=== PATIENT | female | born 1995 | race Caucasian/White ===

== ENCOUNTER 2017-04-26 20:06 | Emergency (ER) | payer OTHER ==
[2017-04-26] MEDS ORDERED: KETOROLAC 60 MG/2 ML VIAL IVP STA (20:35)
--- NOTE | 2017-04-26 20:36 | ED Physician Documentation ---
PD HPI ABD PAIN - Stated complaint Stated Complaint: ABD PX - Chief complaint Chief Complaint: Abd Pain - History obtained from History obtained from: Patient - History of Present Illness Timing - onset: Yesterday Timing - duration: Days (2) Timing - details: Gradual onset Pain level max: 8 Pain level now: 8 Quality: Aching, Pain Location: All over / everywhere Improved by: Laying still Worsened by: Moving Associated symptoms: No: Fever, Nausea, Vomiting, Hematemesis, Diarrhea, Constipation, Melena, Hematochezia, Dysuria, Hematuria, Chest pain Similar symptoms before: Diagnosis (ovarian cyst) Recently seen: Not recently seen - Additional information Additional information: Patient is a 21-year-old female who presents to the emergency department with suprapubic pain for the past 2 days, now radiating to the epigastric region. No pain in her back. She states it is worse when she tries to sit up from lying down or get up from sitting to standing. Does not recall any injury. No recent workouts. Took Motrin last night. Has not taken anything today. No diarrhea, no constipation, no vaginal bleeding or discharge. 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 - Past Surgical History Past Surgical History: No - Present Medications Home Medications: Ambulatory Orders Medication Instructions Recorded Confirmed Oxycodone HCl/Acetaminophen 1 - 2 each PO Q6H PRN #14 tablet 04/26/17 [Percocet 5-325 mg Tablet] - Allergies Allergies/Adverse Reactions: Allergies Allergy/AdvReac Type Severity Reaction Status Date / Time nickel Allergy Rash Verified 04/26/17 20:18 - Living Situation Living Arrangement: reports: At home - Social History Does the pt smoke?: No Does the pt have substance abuse?: No - Family History Family history: reports: Non contributory PD ED PE NORMAL - Vitals Vital signs reviewed: Yes - General General: Alert and oriented X 3, Well developed/nourished, Other (appears uncomfortable) - HEENT HEENT: PERRL, Moist mucous membranes - Neck Neck: Supple, no meningeal sign - Cardiac Cardiac: RRR, Strong equal pulses - Respiratory Respiratory: No respiratory distress, Clear bilaterally - Abdomen Abdomen: Soft, Non distended, Other (TTP diffusely, but worse in the RLQ. + rebound. ) - Female Female : Pt declined - Back Back: No CVA TTP, No spinal TTP - Derm Derm: Warm and dry, No rash - Extremities Extremities: No edema - Neuro Neuro: Alert and oriented X 3 - Psych Psych: Normal mood, Normal affect Results - Vitals Vitals: Vital Signs - 24 hr 04/26/17 04/26/17 04/26/17 20:13 21:23 22:46 Temperature 36.1 C L 36.5 C Heart Rate 98 69 68 Respiratory 18 15 16 Rate Blood Pressure 140/96 H 118/81 H 110/68 O2 Saturation 98 98 100 Oxygen O2 Source Room air - Labs Labs: Laboratory Tests 04/26/17 04/26/17 04/26/17 20:20 20:45 20:45 WBC 7.6 RBC 4.62 Hgb 14.3 Hct 42.1 MCV 91.2 MCH 31.0 MCHC 34.0 RDW 13.5 Plt Count 188 MPV 9.2 Neut # 4.5 Lymph # 2.2 [place] # 0.7 Eos # 0.1 Baso # 0.0 Absolute Nucleated RBC 0.00 Nucleated RBC % 0.0 Sodium 135 Potassium 3.5 Chloride 103 Carbon Dioxide 25 Anion Gap 7.0 BUN 13 Creatinine 0.7 Estimated GFR (MDRD) 105 Glucose 111 H Calcium 9.1 Total Bilirubin 0.4 AST 91 H ALT 32 Alkaline Phosphatase 32 L Total Protein 7.9 Albumin 4.4 Globulin 3.5 Albumin/Globulin Ratio 1.3 Lipase 22 Urine Color YELLOW Urine Clarity CLEAR Urine pH 6.0 Ur Specific [place] >=1.030 H Urine Protein NEGATIVE Urine Glucose (UA) NEGATIVE Urine Ketones TRACE Urine Occult Blood NEGATIVE Urine Nitrite NEGATIVE Urine Bilirubin NEGATIVE Urine Urobilinogen 0.2 (NORMAL) Ur Leukocyte Esterase NEGATIVE Ur Microscopic Review NOT INDICATED Urine Culture Comments NOT INDICATED Urine HCG, Qual NEGATIVE - Rads (name of study) Ct abd/pelvis Radiology: Prelim report reviewed, EMP read contemporaneously, See rad report ( Bilateral hemorrhagic-appearing leaking ovarian cysts measuring up to 3.5 cm on the left. Only small amount of free fluid in the pelvis. These do not require ultrasound follow-up. Normal appendix. ) PD MEDICAL DECISION MAKING - ED course Complexity details: reviewed results, re-evaluated patient, considered differential, d/w patient ED course: Patient is a 21-year-old female who presents to the emergency department with worsening abdominal and pelvic pain. Appears to have bilateral hemorrhagic ovarian cysts with benign appearance on CT scan. They both also have regions of wall discontinuity consistent with leaking cyst. Likely this is the source and cause of her pain. Her pain is well controlled here. Will place on pain medication for home and follow-up with her doctor. Normal vital signs. Not anemic. Patient counseled regarding signs and symptoms for which I believe and urgent re-evaluation would be necessary. Patient with good understanding of and agreement to plan and is comfortable going home at this time This document was made in part using voice recognition software. While efforts are made to proofread this document, sound alike and grammatical errors may occur. Departure - Departure Disposition: 01 Home, Self Care Clinical Impression: Hemorrhagic cysts of both ovaries Condition: Good Instructions: ED Cyst Ovarian Follow-Up: Karl Herrera ARNP [Primary Care Provider] - Within 1 week Prescriptions: Oxycodone HCl/Acetaminophen [Percocet 5-325 mg Tablet] 1 - 2 each PO Q6H PRN # 14 tablet PRN Reason: pain Comments: This should improve over the next few days. Return if you worsen including uncontrolled pain, lightheadedness, dizziness or any other new or worsening symptoms. Do not drink alcohol or drive while on narcotic pain medicine. Note that many narcotic pain relievers also contain tylenol/acetaminophen. Please ensure that your total dose of acetaminophen from all sources does not exceed 3 grams (3000mg) per day. You may constipated on this medication, take a stool softener such as "Colace" twice a day while you are on it. Also recommend a [id number] laxative such as senna or MiraLAX any day that you do not have a bowel movement. If you received narcotic pain medication in the emergency department, do not drive or operate machinery for the next 24 hours. Forms: Activity restrictions Discharge Date/Time: 04/26/17 22:46
[2017-04-26 20:44] LABS: BILIRUBIN,URINE NEGATIVE (NEGATIVE)
[2017-04-26 20:45] LABS: UA CHARGE (STRIP ONLY) YES; UR CULTURE IF IND NOT INDICATED
[2017-04-26 20:46] LABS: HCG UR QUAL NEGATIVE
[2017-04-26 20:52] LABS: BASOPHILS % (AUTO) 0.4 %; EOSINOPHILS # (AUTO) 0.1 10^3/uL (0.0-0.7); EOSINOPHILS % (AUTO) 1.7 %; HCT - HEMATOCRIT 42.1 % (37.0-47.0); HGB - HEMOGLOBIN 14.3 g/dL (12.0-16.0); LYMPHOCYTES # (AUTO) 2.2 10^3/uL (1.5-3.5); LYMPHOCYTES % (AUTO) 29.2 %; MEAN CORPUSCULAR VOLUME 91.2 fL (81.0-99.0); MEAN PLATELET VOLUME 9.2 fL (7.9-10.8); MONOCYTES # (AUTO) 0.7 10^3/uL (0.0-1.0); MONOCYTES % (AUTO) 9.4 %; NEUTROPHILS # (AUTO) 4.5 10^3/uL (1.5-6.6); NEUTROPHILS % (AUTO) 59.3 %; RED BLOOD COUNT 4.62 10^6/uL (4.20-5.40); RED CELL DISTRIBUTION WIDTH 13.5 % (12.0-15.0); UNCORRECTED WHITE BLOOD COUNT 7.6 x10^3/uL; WHITE BLOOD COUNT 7.6 x10^3/uL (4.8-10.8)
[2017-04-26] MEDS ORDERED: KETOROLAC 30 MG/ML VIAL ONE (21:02)
[2017-04-26 21:13] LABS: ALBUMIN/GLOBULIN RATIO 1.3 (1.0-2.2); BILIRUBIN,TOTAL 0.4 mg/dL (0.2-1.0); CALCIUM 9.1 mg/dL (8.5-10.3); CREATININE 0.7 mg/dL (0.4-1.0); POTASSIUM 3.5 mmol/L (3.5-5.0); TOTAL PROTEIN 7.9 g/dL (6.7-8.2)
[2017-04-26] MEDS ORDERED: IOPAMIDOL-300 100 ML VIAL ONE (21:39)
[2017-04-26] MEDS ORDERED: IOPAMIDOL-300 100 ML VIAL IVP ONE (21:54)
--- NOTE | 2017-04-26 22:19 | CT Preliminary Report ---
Exam: CT Abdomen/Pelvis W/ IMPRESSION: 1. Bilateral hemorrhagic-appearing leaking ovarian cysts measuring up to 3.5 cm on the left. Only sma ll amount of free fluid in the pelvis. These do not require ultrasound follow-up. 2. Normal appendix. [facility] SITE ID: [id number]
--- NOTE | 2017-04-26 22:29 | CT Report ---
EXAM: CT ABDOMEN AND PELVIS EXAM DATE: 04/26/2017 10:05 PM. CLINICAL HISTORY: Right lower quadrant abdominal pain. COMPARISONS: None. TECHNIQUE: Routine helical CT imaging was performed through the abdomen and pelvis. IV contrast: Yes . Enteric contrast: No . Reconstructions: Coronal and sagittal. In accordance with CT protocol optimization, one or more of the following dose reduction techniques w ere utilized for this exam: automated exposure control, adjustment of mA and/or KV based on patient s ize, or use of iterative reconstructive technique. FINDINGS: Lung Bases: Unremarkable. Liver: Unremarkable. No suspicious masses. Gallbladder/Bile Ducts: Unremarkable. Spleen: Unremarkable. Pancreas: Unremarkable. Adrenal Glands: Unremarkable. Kidneys: Unremarkable. No suspicious masses or hydronephrosis. Peritoneal Cavity/Bowel: No bowel obstruction or inflammatory process seen. No free air. Mild free fl uid in the pelvis, please see below. No masses or adenopathy. The appendix is normal. No excessive st ool burden. Pelvic Organs: Bilateral hemorrhagic-appearing ovarian cysts with benign appearance, measuring up to 27 x 26 x 24 mm on the right and 36 x 32 x 30 mm on the left. Both have regions of wall discontinuit y, consistent with leaking cysts. No large intraperitoneal hemorrhage. Uterus and urinary bladder shelley ears unremarkable. Vasculature: No aneurysms or other significant abnormality. Bones: No significant abnormality. Other: None. IMPRESSION: 1. Bilateral hemorrhagic-appearing leaking ovarian cysts measuring up to 3.5 cm on the left. Only sma ll amount of free fluid in the pelvis. These do not require ultrasound follow-up. 2. Normal appendix. [facility] Referring Provider Line: [phone] SITE ID: [id number]
[2017-04-26] MEDS ORDERED: oxyCODONE/ACET 5/325 Prepack 4 PO STA (22:34)
[2017-04-26] MEDS ORDERED: oxyCODONE/ACET 5/325 Prepack 4 PO ONE (22:46)
[2017-04-27 02:04] VITALS: BP 110/68
== END 2017-04-26 22:46 | disposition home or self-care (01) ==
LOC: ED 20:06
DX: N83.202 Unspecified ovarian cyst, left side (principal); N83.201 Unspecified ovarian cyst, right side
CPT/HCPCS: 36415; 74177; 80053; 81003; 81025; 83690; 85025; 96374; 99284; Q9967; 81001; 87086

== ENCOUNTER 2019-03-25 21:25 | Emergency (ER) | payer OTHER ==
[2019-03-25 21:57] LABS: BILIRUBIN,URINE NEGATIVE (NEGATIVE); GLUCOSE, URINE (UA) NEGATIVE (NEGATIVE); KETONES,URINE (UA) NEGATIVE (NEGATIVE); LEUKOCYTE ESTERASE, URINE NEGATIVE (NEGATIVE); NITRITE,URINE NEGATIVE (NEGATIVE); OCCULT BLOOD,URINE NEGATIVE (NEGATIVE); PROTEIN,URINE NEGATIVE (NEGATIVE); UROBILINOGEN,URINE 0.2 (NORMAL) E.U./dL (NORMAL)
[2019-03-25 21:59] LABS: BASOPHILS % (AUTO) 0.3 %; EOSINOPHILS # (AUTO) 0.1 10^3/uL (0.0-0.7); EOSINOPHILS % (AUTO) 1.3 %; HGB - HEMOGLOBIN 13.9 g/dL (12.0-16.0); LYMPHOCYTES # (AUTO) 2.9 10^3/uL (1.5-3.5); LYMPHOCYTES % (AUTO) 27.6 %; MEAN CORPUSCULAR HEMOGLOBIN 29.9 pg (27.0-31.0); MEAN CORPUSCULAR HGB CONC 33.6 g/dL (32.0-36.0); MEAN PLATELET VOLUME 11.3 fL (7.9-10.8); MONOCYTES # (AUTO) 0.8 10^3/uL (0.0-1.0); MONOCYTES % (AUTO) 7.1 %; NEUTROPHILS # (AUTO) 6.7 10^3/uL (1.5-6.6); NEUTROPHILS % (AUTO) 63.5 %; PLT - PLATELET COUNT 253 10^3/uL (130-450); RED BLOOD COUNT 4.65 10^6/uL (4.20-5.40); RED CELL DISTRIBUTION WIDTH 13.2 % (12.0-15.0); WHITE BLOOD COUNT 10.5 x10^3/uL (4.8-10.8)
[2019-03-25 21:59] LABS: CLARITY,URINE CLEAR (CLEAR); HCG UR QUAL NEGATIVE
[2019-03-25 22:12] LABS: ALBUMIN 4.9 g/dL (3.2-5.5); ALBUMIN/GLOBULIN RATIO 1.4 (1.0-2.2); BILIRUBIN,TOTAL 0.5 mg/dL (0.2-1.0); CALCIUM 9.8 mg/dL (8.5-10.3); CREATININE 0.7 mg/dL (0.4-1.0); TOTAL PROTEIN 8.4 g/dL (6.7-8.2)
--- NOTE | 2019-03-25 22:32 | ED Physician Documentation ---
PD HPI ABD PAIN - Stated complaint Stated Complaint: ABD PX - Chief complaint Chief Complaint: Abd Pain - History obtained from History obtained from: Patient - History of Present Illness Timing - onset: How many weeks ago (1) Timing - duration: Weeks (1) Timing - details: Gradual onset, Still present, Waxing and waning Quality: Cramping, Aching, Pain Location: LLQ Improved by: Laying still Worsened by: Eating, Moving, Position Associated symptoms: Nausea, Constipation (She states she has had only couple of bowel movements in the last week. With those she noted some stool as well as some purplish type of blood without any clots. There is no melena.), Hematochezia. No: Fever, Vomiting, Diarrhea, Melena, Dysuria, Vaginal dc Similar symptoms before: Has not had sx before Recently seen: Clinic (She is seen in the clinic and given MiraLAX stool softener. She states she had CBC showing elevated white count.) Review of Systems Constitutional: denies: Fever, Chills, Myalgias Nose: denies: Rhinorrhea / runny nose, Congestion Throat: denies: Sore throat Respiratory: denies: Cough GI: reports: Abdominal Pain, Nausea, Constipation, Bloody / black stool. 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 - Past Surgical History Past Surgical History: No - Present Medications Home Medications: Ambulatory Orders Medication Instructions Recorded Confirmed Docusate Sodium 100 mg PO DAILY #15 capsule 03/26/19 Hydrocodone/Acetaminophen [[place] 1 each PO Q6H PRN #12 tablet 03/26/19 5-325 Tablet] Metronidazole [Flagyl] 500 mg PO BID #14 tablet 03/26/19 Ondansetron Odt [Zofran] 4 mg TL Q6H PRN #10 tablet 03/26/19 dexAMETHasone [Decadron] 4 mg PO DAILY #5 tablet 03/26/19 - Allergies Allergies/Adverse Reactions: Allergies Allergy/AdvReac Type Severity Reaction Status Date / Time nickel Allergy Rash Verified 03/25/19 21:39 - Social History Does the pt smoke?: No Smoking Status: Never smoker Does the pt drink ETOH?: No Does the pt have substance abuse?: No - Immunizations Immunizations are current?: Yes - POLST Patient has POLST: No PD ED PE NORMAL - Vitals Vital signs reviewed: Yes - General General: Alert and oriented X 3, Well developed/nourished - Neck Neck: Supple, no meningeal sign, No adenopathy - Cardiac Cardiac: RRR, No murmur - Respiratory Respiratory: Clear bilaterally - Abdomen Abdomen: Normal bowel sounds, Soft, Non distended, No organomegaly, Other (Left lower quadrant tenderness without any percussion or rebound. There is no flank tenderness.) - Female Female : Deferred - Rectal Rectal: Other (no hemorrhoids) - Back Back: No CVA TTP - Derm Derm: Normal color, Warm and dry - Neuro Neuro: Alert and oriented X 3, No motor deficit, Normal speech Results - Vitals Vitals: Vital Signs - 24 hr 03/25/19 03/25/19 03/25/19 21:25 22:09 22:37 Temperature 36.8 C Heart Rate 110 H 106 H 90 Respiratory 18 17 17 Rate Blood Pressure 158/82 H 138/90 H 138/86 H O2 Saturation 100 97 98 03/25/19 03/25/19 03/26/19 23:38 23:53 01:35 Temperature 36.7 C Heart Rate 90 79 79 Respiratory 17 17 17 Rate Blood Pressure 129/93 H 129/93 H 124/90 H O2 Saturation 99 100 99 Oxygen O2 Source Room air - Labs Labs: Laboratory Tests 03/25/19 03/25/19 03/25/19 21:45 21:54 21:54 WBC 10.5 RBC 4.65 Hgb 13.9 Hct 41.4 MCV 89.0 MCH 29.9 MCHC 33.6 RDW 13.2 Plt Count 253 MPV 11.3 H Neut # (Auto) 6.7 H Lymph # (Auto) 2.9 [place] # (Auto) 0.8 Eos # (Auto) 0.1 Baso # (Auto) 0.0 Absolute Nucleated RBC 0.00 Nucleated RBC % 0.0 Sodium 139 Potassium 3.5 Chloride 101 Carbon Dioxide 29 Anion Gap 9.0 BUN 13 Creatinine 0.7 Estimated GFR (MDRD) 103 Glucose 78 Calcium 9.8 Total Bilirubin 0.5 AST 17 ALT 16 Alkaline Phosphatase 31 L Total Protein 8.4 H Albumin 4.9 Globulin 3.5 Albumin/Globulin Ratio 1.4 Lipase 35 Urine Color YELLOW Urine Clarity CLEAR Urine pH 6.0 Ur Specific [place] 1.020 Urine Protein NEGATIVE Urine Glucose (UA) NEGATIVE Urine Ketones NEGATIVE Urine Occult Blood NEGATIVE Urine Nitrite NEGATIVE Urine Bilirubin NEGATIVE Urine Urobilinogen 0.2 (NORMAL) Ur Leukocyte Esterase NEGATIVE Ur Microscopic Review NOT INDICATED Urine Culture Comments NOT INDICATED Urine HCG, Qual NEGATIVE - Rads (name of study) abd U/S Radiology: Prelim report reviewed (normal appendix), See rad report pelvic U/S Radiology: Prelim report reviewed (No acute process of the pelvis. ), See rad report PD MEDICAL DECISION MAKING - ED course Complexity details: reviewed results, considered differential (CT is unavailable to to malfunction. The patient is having left-sided abdominal pain with some diarrhea and report of bloody stool. She is not tender in the right. Her urine is normal. Pelvic ultrasound did not show any ovarian causes of problems. Ultrasound of her appendix was normal. She does not have any diffuse abdominal tenderness nor peritoneal signs. I discussed it with her and she was comfortable treating for colitis without transferring for CT scan. I feel this is reasonable medical care.), d/w patient Departure - Departure Disposition: Home, Self Care Clinical Impression: Bloody stool Abdominal pain Qualifiers: Abdominal location: lower abdomen, unspecified Qualified Code(s): R10.30 - Lower abdominal pain, unspecified Condition: Stable Record reviewed to determine appropriate education?: Yes Instructions: ED Abdominal Pain Unkn Cause Follow-Up: Karl Herrera ARNP [Primary Care Provider] - Prescriptions: dexAMETHasone [Decadron] 4 mg PO DAILY #5 tablet Docusate Sodium 100 mg PO DAILY #15 capsule Hydrocodone/Acetaminophen [[place] 5-325 Tablet] 1 each PO Q6H PRN #12 tablet PRN Reason: Pain Metronidazole [Flagyl] 500 mg PO BID #14 tablet Ondansetron Odt [Zofran] 4 mg TL Q6H PRN #10 tablet PRN Reason: Nausea / Vomiting Comments: Your ultrasound showed a small cyst in the left ovary which is presumably incidental as it was very small and there is no signs of bleeding from it. Otherwise your pelvic organs appeared normal. Your appendix appeared normal and ultrasound as well. Your urine test was clear. Given your symptoms of the lower abdominal pain and the blood in your stools, I would presume you have an irritation of the colon (colitis). This can be inflammatory or infectious as the common causes for it. We can treat with a steroid anti-inflammatory and an antibiotic and then also use a stool softener. Ondansetron if needed for nausea and Tylenol or hydrocodone if needed for pain. Follow-up with your primary care in the next several days, call for an appointment. See how much improvement you have with the above medications over the next couple of days. If not improving, they may elect to do other imaging such as CT scan or better to arrange for colonoscopy to better evaluate the intestine. Discharge Date/Time: 03/26/19 02:26
[2019-03-25] MEDS ORDERED: SODIUM CHLORIDE 0.9% 1,000 ML IV ONE (23:29)
[2019-03-25] MEDS ORDERED: KETOROLAC 15 MG/ML VIAL IVP STA (23:29)
[2019-03-25] MEDS ORDERED: ONDANSETRON 4 MG/2 ML VIAL IVP STA (23:29)
[2019-03-25] MEDS ORDERED: ACETAMINOPHEN 325 MG TABLET PO STA (23:30)
[2019-03-25] MEDS ORDERED: DOCUSATE SODIUM 100 MG CAPSULE PO STA (23:30)
[2019-03-26 01:37] VITALS: BP 124/90
--- NOTE | 2019-03-26 01:46 | Ultrasound Report ---
Reason: lower abd pain for a week, left more Procedure Date: 03/26/2019 Accession Number: [id number] / [id number] Procedure: US - Abdomen Limited CPT Code: FULL RESULT: EXAM: ABDOMEN ULTRASOUND LIMITED EXAM DATE: 03/26/2019 01:00 AM. CLINICAL HISTORY: Lower abdominal pain. COMPARISON: ABDOMEN/PELVIS W/ 04/26/2017 9:54 PM. TECHNIQUE: Real-time scanning was performed with static images obtained. FINDINGS: There is equivocal partial visualization of normal compressible appendix. No appendicolith is seen. Marked compression was tolerated. Multiple normal sized lymph nodes are seen measuring up to 1.2 x 0.6 cm. No fluid collection is seen. No bowel wall thickening is noted. IMPRESSION: 1. Equivocal partial visualization of normal compressible appendix. 2. Multiple normal-sized lymph nodes. These are nonspecific. [facility]
--- NOTE | 2019-03-26 01:59 | Ultrasound Report ---
Reason: pelvic pain Procedure Date: 03/26/2019 Accession Number: [id number] / [id number] Procedure: US - Pelvic w/Transvag+Doppler Ltd CPT Code: FULL RESULT: EXAM: PELVIC ULTRASOUND WITH DOPPLERS CLINICAL HISTORY: Pelvic pain. COMPARISON: ABDOMEN/PELVIS W/ 04/26/2017 9:54 PM TECHNIQUE: Realtime transabdominal imaging performed to identify the uterus and adnexa and as an overview of other pelvic structures, followed by transvaginal imaging for better assessment of the endometrium and adnexa, with static image documentation. Color flow imaging and Doppler spectral analysis was performed to evaluate blood flow to the ovaries given pelvic pain and clinical concern for ovarian torsion. FINDINGS: Uterus: 6.6 x 3.8 x 2.6 cm, volume 34.1 cc. Anteverted position. Normal overall size and echotexture. Masses: None. Endometrium: 4.7 mm. Normal. Cervix: Unremarkable. Right Ovary: 2.8 x 2.1 x 2.1 cm, volume 6.4 cc. Normal echotexture. Arterial and venous blood flow are present. PSV 9.1 cm/sec. RI 0.54. Adnexa are unremarkable. Left Ovary: 3.5 x 3.8 x 2.7 cm, volume 18.7 cc. Cyst is present measuring 2.4 x 2.3 x 1.8 cm. Small echogenic area seen adjacent to cyst measuring 1.0 x 0.5 x 0.5 cm. Arterial and venous blood flow are present. PSV 19.9 cm/sec. RI 0.54. Adnexa are unremarkable. Free Fluid: Trace free fluid in pelvic cul-de-sac. IMPRESSION: 1. No sonographic evidence of ovarian torsion. 2. Left ovarian cyst/dominant follicle measuring 2.4 cm with nonspecific echogenic area adjacent to cyst measuring 1 cm. 3. Trace free fluid in the pelvis, nonspecific. [facility]
[2019-03-26] MEDS ORDERED: DEXAMETHASONE 10 MG/ML VIAL IVP STA (02:05)
[2019-03-26] MEDS ORDERED: HYDROcod/ACET 5/325 Prepack 4 PO STA (02:05)
[2019-03-26] MEDS ORDERED: metroNIDAZOLE 250 MG TABLET PO STA (02:05)
== END 2019-03-26 02:26 | disposition home or self-care (01) ==
LOC: ED 21:25
DX: K92.1 Melena (principal); R10.30 Lower abdominal pain, unspecified; N83.202 Unspecified ovarian cyst, left side
CPT/HCPCS: 36415; 76705; 76830; 76856; 80053; 81003; 81025; 83690; 85025; 93976; 96374; 99284; A9270; 81001; 87086

== ENCOUNTER 2020-03-28 09:49 | Outpatient (CLI) | payer OTHER ==
[2020-03-28 15:35] VITALS: BP 115/72
--- NOTE | 2020-03-28 15:35 | SLEEP CARE CONSULTATION ---
Information from patient questionnaire entered by Hilda Martin. I have reviewed and concur with the information entered by Hilda Martin. This document represents the service I personally performed and the decisions made by me, Ania Cowan ARNP. History of Present Illness Service Date and Time: 03/28/2020 0949 Reason for Visit: New patient Chief Complaint: reports: Unrefreshed sleep (wakes up with disoriented feeling, tired), Excessive daytime sleepiness, Other (difficulty waking up, feeling she could sleep for days). denies: Insomnia, Snoring, Observed pauses in breathing, Fatigue, Frequent awakenings at night Date of Onset: 1 year Usual bedtime: 2387-0018 prior, now 1999/2099/fall asleep before have dinner Time it takes to fall asleep: 5-10 minutes Snores at night: No Observed to quit breathing while asleep: No Sleeps alone due to snoring: No Number of times waking at night: 0 if have slept over 12 hours, between 12-18 wake maybe 1x Reasons for waking at night: reports: Other (sunlight through window, heat, uncomfortable). denies: Choking, Snoring, Gasping for air Toss, Turn, or Twitch while sleeping: Yes Recalls having dreams: Yes (very rarely) Usually gets out of bed at: [id number] if wake to alarm, off days [id number] Feels refreshed in the morning: No (not very often) Morning headache: Yes (sometimes; 1 a week) Sleepy or fatigued during the day: Yes (nearly every day, if not moving around actively, will doze off) Ever fallen asleep while driving: No (almost) Takes day naps: No (if i do will sleep for hour or not want to wake up) Dreams during day naps: No Prior sleep studies: No Additional HPI information: I had the pleasure of seeing MILA WILKINSON today regarding the possibility of her having a sleep disorder. Her current complaints are unrefreshed sleep, excessive daytime sleepiness and difficulty waking up. She states that since about a year ago she has been having more difficulty being able to wake up after sleeping. She states she used to be able to stay up late with friends at the bar and then get about 6 hours sleep and function fine without sleepiness. 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 She went to sleep on a Friday night and did not wake up until Friday morning when someone came into her room. She states she feels like she just wants to keep sleeping. She states that she does better if she sleeps less time and is able to wake up better if she is sleeping sitting up with an alarm. She also has some arm jerks or legs while sleeping according to her fiance. She denies snoring or observed pauses in breathing when sleeping. She is on Adderall for ADHD. Her father snored loudly and is treated for sleep apnea. - Parasomnia Symptoms Ever been unable to move upon waking from sleep: No Walks in sleep: No Talks in sleep: Yes (says random words) Ever acted out dreams in sleep: Yes (jerking limbs in sleep, dreaming of running) Ever felt weak in the knees when startled or emotional: Yes Bothered by creepy, crawly, restless sensations in legs: No (sometimes in arms, injured shoulders) Problems with memory or concentration: Yes (sometimes with memory) Past Medical History Past Medical History: reports: Arthritis (right knee, left shoulder, right wrist), Depression, Attention deficit (currently being treated), Other (pre- hypertension). 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 Patient is Single and lives in [place]. Have you smoked in the past 12 months: Yes Cigarettes per day (20/pack): 10 Years of smokin Smoking Pack Years: 5.0 Alcohol use: Yes Alcohol amount and frequency: 2 glasses, 1/month Caffeine use: Yes Caffeine amount and frequency: 16oz over 10-12 hour time, daily Family History Family history of sleep disordered breathing: Yes Family Hx Sleep Apnea: Father: Snoring, Sleep apnea - Treated Allergies and Home Medications Drug allergies reviewed: Yes (NKDA, nickel) Home medication list reviewed: Yes Allergy and home medication list: Adderrall 20 mg daily Aleve, prn Review of Systems Weight loss over past 5 years: 20 Cardiovascular: reports: chest pain (random), leg or foot swelling (knees), have to sleep sitting up (wake easier this way), other (sometimes has high blood pressure but then it is normal). denies: high blood pressure, palpitations, irregular heart rate or pulse Respiratory: reports: other (can't fully or sometimes breath at all from left side of nose). denies: shortness of breath (when exercising, not asthma as evaluated as a child), chronic cough Gastrointestinal: reports: heartburn, difficulty swallowing (sometimes), abdominal pain Urinary: reports: urgency Neurological: reports: headaches. denies: seizure, head trauma, speech dysfunction, gait or balance problems Psychiatric: reports: Attention Deficit Hyperactivity, anxiety, depression Ear/Nose/Throat: reports: nasal congestion, sinus problems, nose bleeds (very light; worse when dry, couple times a month), dry mouth/throat (mouth breather due to congestion in nose, mornings too), wisdom teeth removed. denies: hoarseness, injury to nose, tonsillectomy Endocrine: reports: sluggishness, too hot or cold, excessive thirst, increased urination, unexplained weakness Musculoskeletal: reports: joint pain, neck pain, back pain, joint swelling, muscle pain or cramping Immunologic: reports: sneezing, allergies to food or environment (pollens) Physical Exam Blood Pressure: 115/72 Cuff size: regular Heart Rate: 108 O2 Saturation: 98 Height: 5 ft 2 in Weight: 155 lb 6.4 oz Body Mass Index: 28.4 BMI Classification: Overweight Neck circumference: 12 (inches) HEENT: No craniofacial malformation Nostrils: patent to airflow Turbinates: normal Septum: midline Mouth and throat: normal Soft palate: normal Hard palate: normal Uvula: normal Uvula visualization: 100% Mallampati Class I Tongue: normal in size Tonsils: small Chin and jaw: normal size and position Neck: normal w/o lymphadenopathy or thyromegaly Heart: regular rate and rhythm Lungs: clear bilaterally Impression and Plan 1. Suspected Obstructive Sleep Apnea-Hypopnea Syndrome, as suggested by a history of occasional morning headache, unrefreshed sleep, cognitive impairment, and excessive daytime sleepiness. She also has difficulty waking up in the morning. Narrow oropharynx and obesity are common predisposing factors for obstructive sleep apnea-hypopnea syndrome. I recommend proceeding to polysomnography to confirm the diagnosis and to assess severity. If the patient has significant sleep disordered breathing, a manual CPAP titration study will also be performed to find the optimal treatment pressure. I informed the patient of what the sleep studies involve and after some discussion, obtained agreement to proceed. The pathophysiology of obstructive sleep apnea-hypopnea syndrome was discussed with the patient and health risks of cardiovascular and cerebrovas cular disease if not treated. Risks of drowsy driving discussed in detail and patient advised to avoid long distance driving and to pull worker at the first sign of drowsiness. Patient agreed to plan. [facility] drowsy driving brochure given. * Schedule polysomnography +- manual CPAP titration study. * Avoid long distance driving or driving when feeling sleepy. * Avoid alcohol, sedative and muscle relaxant around bedtime. * Attempt to lose weight. * Review instructions provided by trained office staff on how to prepare for the sleep study. * Return for follow-up after sleep study completed. Visit Type: In Office Provider Statement: I spent 100% of the Face to Face Visit with the patient with greater than 50% spent counseling the patient and coordination of care.
== END 2020-03-28 09:50 | disposition home or self-care (01) ==
LOC: SC 09:49
PROVIDERS: ATTEND Nurse Practitioner Family
DX: G47.8 Other sleep disorders (principal); G47.10 Hypersomnia, unspecified; F90.9 Attention-deficit hyperactivity disorder, unspecified type; E66.3 Overweight; Z68.28 Body mass index [BMI] 28.0-28.9, adult; F17.210 Nicotine dependence, cigarettes, uncomplicated
CPT/HCPCS: 99204; 99212

== ENCOUNTER 2020-03-31 19:32 | Outpatient (CLI) | payer OTHER | END 2020-03-31 19:33 | disposition home or self-care (01) | LOC: SC 19:32 | PROVIDERS: ATTEND Nurse Practitioner Family | DX: G47.8 Other sleep disorders (principal); G47.10 Hypersomnia, unspecified; E66.3 Overweight; Z68.28 Body mass index [BMI] 28.0-28.9, adult | CPT/HCPCS: 95810 ==

== ENCOUNTER 2020-04-07 08:34 | Outpatient (CLI) | payer OTHER ==
--- NOTE | 2020-04-07 09:26 | SLEEP CARE CONSULTATION ---
Information from patient questionnaire entered by Belgica Chun. I have reviewed and concur with the information entered by Belgica Chun. This document represents the service I personally performed and the decisions made by , Ania Cowan ARNP. History of Present Illness Service Date and Time: 04/07/2020833 Initial [place] Sleepiness Scale score: 14 (in 2020) Current [place] Sleepiness Scale score: 13 Additional HPI information: MILA WILKINSON returns for follow up and results of the recently performed polysomnography. The patient was informed of the following findings: Normal sleep study, no significant sleep disordered breathing with an average AHI of 0.0. I explained the pathophysiology behind obstructive sleep apnea. Patient does not have sleep apnea and was advised how weight gain could increase the risk of developing sleep apnea in the future. Patient counseled not drink alcohol less than 4 hours before bedtime as it can increase snoring and apnea. Patient was cautioned about risks of drowsy driving until sleepiness symptoms resolve. Sleep Study - Results Type of Sleep Study: Polysomnography Prior sleep studies: No Polysomnography/Home Sleep Study results: IMPRESSION: The quality of the study is good. The patient had normal sleep efficiency. Except for the slightly reduced REM latency, the sleep architecture was normal as well. Respiratory monitoring showed no significant sleep disordered breathing (AHI = 0.0) or hypoxia (sandeep oxygen saturation of 95%). The patient slept adequately in supine position (supine AHI = 0.0; non-supine = 0.00). No audible snore. There was no significant periodic leg movement of sleep. Cardiac rhythm was normal sinus rhythm without significant arrhythmia. No abnormal behavior (parasomnia) observed during the night Allergies and Home Medications Drug allergies reviewed: Yes (nickel) Home medication list reviewed: Yes (no changes) Review of Systems Review of systems same as previous: Yes (no changes) Physical Exam Heart Rate: 108 O2 Saturation: 100 Height: 5 ft 2 in Weight: 113 lb Body Mass Index: 20.6 BMI Classification: Healthy weight Impression and Plan 1. Unrefreshed sleep. Patient polysomnography showed no significant sleep d isordered breathing. Patient continues to have difficulty in waking up. She states sometimes she will wake up refreshed but more often she sleeps through her alarms until someone comes in to wake her up. She will wake up after 9 hours of sleep and go back to sleep for 4-5 more hours. Patient is getting adequate time in bed but continues to have excessive daytime sleepiness. She is having difficulties at work for being late due to oversleeping. She is on Adderrall for Attention deficit. 2. Hypersomnia. I discussed with patient that I would like to rule out possible narcolepsy and feel a MSLT test is warranted based upon her excessive sleepiness and inability to get refreshed sleep despite sleeping up to 14 hours. She will have to stop her Adderrall for at least 2 weeks prior to the study. Schedule MSLT. Avoid long distance driving or driving when feeling sleepy. Avoid alcohol, sedative and muscle relaxant around bedtime. Review instructions provided by trained office staff on how to prepare for the sleep study and MSLT. Return for follow-up after MSLT is completed. Visit Type: In Office Time Spent with Patient (minutes): 24 Provider Statement: I spent 100% of the Face to Face Visit with the patient with greater than 50% spent counseling the patient and coordination of care.
== END 2020-04-07 08:35 | disposition home or self-care (01) ==
LOC: SC 08:34
PROVIDERS: ATTEND Nurse Practitioner Family
DX: G47.8 Other sleep disorders (principal); G47.10 Hypersomnia, unspecified; R53.83 Other fatigue; F98.8 Other specified behavioral and emotional disorders with onset usually occurring in childhood and adolescence
CPT/HCPCS: 99212; 99213

== ENCOUNTER 2020-04-25 12:05 | Emergency (ER) | payer OTHER ==
[2020-04-25 12:27] VITALS: BP 131/85
[2020-04-25] MEDS ORDERED: BUFFERED LIDOCAINE 10 ML SYRINGE SUBQ STA (15:21)
--- NOTE | 2020-04-25 15:24 | ED Physician Documentation ---
History of Present Illness - Stated complaint Stated Complaint: CYSTS LOWER BACK - Chief complaint Chief Complaint: Wound - History obtained from History obtained from: Patient - Additonal information Additional information: 24-year-old female presents the emergency department for evaluation of a nonruptured pilonidal cyst. She reports that about 10 years ago she had her first pilonidal cyst. It did spontaneously open and drain. Since then it has occurred intermittently. Typically Epson baths or warm compresses are enough to keep it at bay. However over the last 2 weeks the cyst has gotten progressively larger and more painful. It has not ruptured. She has had no fevers. She has never been referred to surgery for this. Past medical history most significant for ADHD. She takes Adderall. Denies possibility of . Not sexually active for 4 months. Last menstrual cycle April 07. 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 - Past Surgical History Past Surgical History: No - Present Medications Home Medications: Ambulatory Orders Medication Instructions Recorded Confirmed Docusate Sodium 100 mg PO DAILY #15 capsule 03/26/19 Hydrocodone/Acetaminophen [Piggott 1 each PO Q6H PRN #12 tablet 03/26/19 5-325 Tablet] Ondansetron Odt [Zofran] 4 mg TL Q6H PRN #10 tablet 03/26/19 dexAMETHasone [Decadron] 4 mg PO DAILY #5 tablet 03/26/19 metroNIDAZOLE [Flagyl] 500 mg PO BID #14 tablet 03/26/19 - Allergies Allergies/Adverse Reactions: Allergies Allergy/AdvReac Type Severity Reaction Status Date / Time nickel Allergy Rash Verified 04/25/20 12:19 - Social History Does the pt smoke?: Yes Smoking Status: Current every day smoker Does the pt drink ETOH?: No Does the pt have substance abuse?: No - Immunizations Immunizations are current?: Yes - POLST Patient has POLST: No PD ED PE NORMAL - General General: Alert and oriented X 3, No acute distress, Well developed/nourished - HEENT HEENT: Atraumatic, EOMI - Neck Neck: Supple, no meningeal sign, No adenopathy - Cardiac Cardiac: RRR, No murmur - Respiratory Respiratory: No respiratory distress, Clear bilaterally - Abdomen Abdomen: Normal bowel sounds, Soft, Non tender, Non distended - Rectal Rectal: Other (2 cm pilonidal cyst palpated. Mild fluctuance. No erythema. This is not draining. No oliver-rectal tenderness or fluctuance.) Results - Vitals Vitals: Vital Signs - 24 hr 04/25/20 12:19 Temperature 36.6 C Heart Rate 110 H Respiratory 18 Rate Blood Pressure 131/85 H O2 Saturation 97 Oxygen O2 Source Room air Procedures - Abscess I&D (location) Pilonidal cyst Preparation: Betadine, Lidocaine 1% Incision: Incised with scalpel, Purulent drainage, Loculations broken, Irrigated, Packed Other: Pt tolerated well, Dressing applied PD MEDICAL DECISION MAKING - ED course Complexity details: reviewed results, re-evaluated patient, considered differential, d/w patient ED course: 89-year-old female presents to the emergency department for evaluation and treatment of a recurrent pilonidal cyst. This has been a recurrent problem for her over the last few years. Here at the bedside the pilonidal cyst was incised and drained. Moderate amount of purulent fluid drained. A small amount of packing was placed. Antibiotics will be deferred as she has no findings of cellulitis. I do recommend that she continue warm compress or a sitz bath. She will remove the packing tomorrow. I have advised close follow-up with [facility]. She may need referral to surgery in order to have this formally drained and the gland removed for long-term management. Return precautions discussed for failure of symptoms to resolve Departure - Departure Disposition: 01 Home, Self Care Clinical Impression: Pilonidal cyst with abscess Condition: Stable Record reviewed to determine appropriate education?: Yes Instructions: ED Cyst Pilonidal Not Infec, Pilonidal Cyst Comments: It is okay to shower normally tomorrow morning or early afternoon. When in the shower remove the small amount of packing that was placed. Please follow up with [facility] to have a referral placed to have a surgeon formally excise this pilonidal and to prevent recurrence in the long-term. If at any point you have increased pain any redness in the area where we drained the cyst fevers or concerns of infection please return to the emergency department. I do recommend that you take ibuprofen [id number] for pain control over the next 24 to 48 hours .
== END 2020-04-25 16:17 | disposition home or self-care (01) ==
LOC: ED 12:05
DX: L05.01 Pilonidal cyst with abscess (principal); F90.9 Attention-deficit hyperactivity disorder, unspecified type; F17.200 Nicotine dependence, unspecified, uncomplicated
CPT/HCPCS: 10081

== ENCOUNTER 2020-07-25 19:20 | Outpatient (CLI) | payer OTHER ==
--- OUTSIDE RECORDS SUMMARY | 2020-08-02 00:28 | EXTERNAL MEDICAL SUMMARY RPT | Continuity of Care Document ---
:1995 Demographics Phone Unavailable Preferred Language Unknown Marital Status Unknown Episcopal Affiliation Unknown Race Unknown Ethnic Group Unknown Author Organization [facility] Address [address] [phone] Phone Care Team Providers Name Role Phone Emir Unavailable Unavailable SHARON Unavailable Unavailable Problems date description facility 2020-03-28 09:49 OVERWEIGHT [facility] 2020-03-28 09:49 NICOTINE DEPENDENCE, CIGARETTES, [facility] UNCOMPLICATED 2020-03-28 09:49 ATTENTION-DEFICIT HYPERACTIVITY [facility] DISORDER, UNSPECIFIED TYPE 2020-03-28 09:49 HYPERSOMNIA, UNSPECIFIED [facility] 2020-03-28 09:49 OTHER SLEEP DISORDERS [facility] 2020-03-28 09:49 BODY MASS INDEX (BMI) 28.0-28.9, [facility] ADULT 2020-03-31 19:32 OVERWEIGHT [facility] 2020-03-31 19:32 HYPERSOMNIA, UNSPECIFIED [facility] 2020-03-31 19:32 OTHER SLEEP DISORDERS [facility] 2020-03-31 19:32 BODY MASS INDEX (BMI) 28.0-28.9, [facility] ADULT 2020-04-07 08:34 OTH BEHAV/EMOTN DISORD W ONSET [facility] USLY OCCUR IN CHLDHD AND ADOL 2020-04-07 08:34 HYPERSOMNIA, UNSPECIFIED [facility] 2020-04-07 08:34 OTHER SLEEP DISORDERS [facility] 2020-04-07 08:34 OTHER FATIGUE [facility] 2020-07-26 00:00 ALTERED MENTAL STATUS, UNSPECIFIED i [facility] 2020-07-26 08:00 ALTERED MENTAL STATUS, UNSPECIFIED [facility] Allergies date description facility NO KNOWN ALLERGIES [facility] [place] nickel [facility] AZITHROMYCIN [facility] BELLADONNA [facility] S[facility] O[facility]ODONE [facility] SUMATRIPTAN [facility] NO KNOWN ENVIRONMENTAL ALLERGIES [facility] SULFA ANTIBIOTICS [facility] Center ADHESIVE BANDAGE [facility] NO KNOWN ALLERGIES [facility] NO ALLERGY INFORMATION AVAILABLE [facility] PENICILLINS [facility] SULFA (SULFONAMIDE ANTIBIOTICS) [facility] NO KNOWN ALLERGIES [facility] FOOD [facility] CODEINE [facility] ACETAZOLAMIDE [facility] NITROFURANTOIN [facility] CIPROFLOXACIN [facility] CIPROFIBRATE [facility] Center ATORVASTATIN [facility] Center ROSUVASTATIN [facility] Results test status date ordered by attending specimen akanksha e null F 2020-07-26 [email or web address] Ania Camryn 07-26 13:02:00 06:30:00 null F 2020-07-26 [email or web address] Ania Camryn 07-26 13:02:00 06:30:00 null F 2020-07-26 [email or web address] Ania Camryn 07-26 13:02:00 06:30:00 null F 2020-07-26 [email or web address] Aniacorey Cowan 07-26 13:02:00 06:30:00 null F 2020-07-26 SENDY.11 Ania Camryn 07-26 13:02:00 06:30:00 null F 2020-07-26 SENDY.11 Aniacorey Cowan 07-26 13:02:00 06:30:00 null F 2020-07-26 SENDY.11 Aniacorey Cowan 07-26 13:02:00 06:30:00 null F 2020-07-26 SENDY.11 Aniacorey Cowan 07-26 13:02:00 06:30:00 null F 2020-07-26 SENDY.11 Ania Cowan - 13:02:00 06:30:00 null F 2020-07-26 SENDY.11 Ania Cowan - 13:02:00 06:30:00 null F 2020-07-26 SENDY.11 Ania Cowan - 13:02:00 06:30:00 null F 2020-07-26 [email or web address] Ania Cowan - 13:02:00 06:30:00 null F 2020-07-26 [email or web address] Ania Cowan - 13:02:00 06:30:00 facility observation status value reference units lab abnor mal line notes range code [facility] F CUTOFF unknown [facility] CONC G eneral BELOW: [facility] uses the PROFILE- V MEDTOXSc an Drugs of Abuse Te st System. It detects drug classes at the foll owing cutoff concentr ation s: AMP Amphetam ine (d-Amphe tamin e) 500 ng/mL BAR Barbitur ates (Butalbi natalio) 200 ng/ mL BZO Benzodia zepin es (Nordiaz epam) 150 ng /mL BUP Buprenor phine (Bupreno rphin e) 10 ng/mL YESSENIA Coca ine (Benzoyl ecgon ine) 1 50 ng/mL MA MP Methamph etami ne (d-Metha mphet amine) 500 ng/mL MT D Methadon e (Methado ne) 200 ng/m L OPI Opiates (Morphin e) 100 ng/m L OXY Oxycodon e (Oxycodo ne) 100 ng/m L PCP Phencycl idine (Phencyc lidin e) 25 ng/mL PPX Propoxyp hene (Norprop oxyph doyle) 3 00 ng/mL TH C Cannabin oids (11-nor- 9-car boxy-9-T HC) 50 ng/mL TCA Tricycli c Antidepr essan ts (Desipra mine) 300 ng /mL All drug screen results are unconfir med. Results are to be us ed only for medical (i.e. treatmen t) purposes only. Unconfir med screenin g results must not be u sed for non-medi arleth purposes (e.g., employme nt testing, legal testing) . [facility] F NEGATIVE NEGATIVE Medical [facility] F NEGATIVE NEGATIVE [facility] F NEGATIVE NEGATIVE [facility] F NEGATIVE NEGATIVE Medical [facility] F NEGATIVE NEGATIVE Medical [facility] F NEGATIVE NEGATIVE Medical [facility] F NEGATIVE NEGATIVE Medical [facility] F NEGATIVE NEGATIVE Medical [facility] F NEGATIVE NEGATIVE Medical [facility] F NEGATIVE NEGATIVE Medical [facility] F NEGATIVE NEGATIVE Medical [facility] F NEGATIVE NEGATIVE Medical [place] Social History date description facility [id number]
== END 2020-07-25 19:21 | disposition home or self-care (01) ==
LOC: SC 19:20
PROVIDERS: ATTEND Nurse Practitioner Family
DX: G47.8 Other sleep disorders (principal); G47.10 Hypersomnia, unspecified; R53.83 Other fatigue
CPT/HCPCS: 95810

== ENCOUNTER 2020-07-26 05:41 | Outpatient (CLI) | payer OTHER ==
--- OUTSIDE RECORDS SUMMARY | 2020-08-02 00:30 | EXTERNAL MEDICAL SUMMARY RPT | Continuity of Care Document ---
:1995 Demographics Phone Unavailable Preferred Language Unknown Marital Status Unknown Episcopal Affiliation Unknown Race Unknown Ethnic Group Unknown Author Organization [facility] Address [address] [phone] Phone Care Team Providers Name Role Phone Emir Unavailable Unavailable SHARON Unavailable Unavailable Problems date description facility 2020-03-28 09:49 OVERWEIGHT [facility] 2020-03-28 09:49 NICOTINE DEPENDENCE, CIGARETTES, [facility] UNCOMPLICATED 2020-03-28 09:49 ATTENTION-DEFICIT HYPERACTIVITY [facility] DISORDER, UNSPECIFIED TYPE 2020-03-28 09:49 HYPERSOMNIA, UNSPECIFIED [facility] 2020-03-28 09:49 OTHER SLEEP DISORDERS [facility] 2020-03-28 09:49 BODY MASS INDEX (BMI) 28.0-28.9, [facility] ADULT 2020-03-31 19:32 OVERWEIGHT [facility] 2020-03-31 19:32 HYPERSOMNIA, UNSPECIFIED [facility] 2020-03-31 19:32 OTHER SLEEP DISORDERS [facility] 2020-03-31 19:32 BODY MASS INDEX (BMI) 28.0-28.9, [facility] ADULT 2020-04-07 08:34 OTH BEHAV/EMOTN DISORD W ONSET [facility] USLY OCCUR IN CHLDHD AND ADOL 2020-04-07 08:34 HYPERSOMNIA, UNSPECIFIED [facility] 2020-04-07 08:34 OTHER SLEEP DISORDERS [facility] 2020-04-07 08:34 OTHER FATIGUE [facility] 2020-07-26 00:00 ALTERED MENTAL STATUS, UNSPECIFIED i [facility] 2020-07-26 08:00 ALTERED MENTAL STATUS, UNSPECIFIED [facility] Allergies date description facility NO KNOWN ALLERGIES [facility] [place] nickel [facility] Medic [facility] AZITHROMYCIN [facility] Center BELLADONNA [facility] CODEINE S[facility] FLUOXETINE [facility] MELOXICAM [facility] OXYCODONE [facility] SUMATRIPTAN [facility] Center NO KNOWN ENVIRONMENTAL ALLERGIES [facility] SULFA ANTIBIOTICS [facility] Center ADHESIVE BANDAGE [facility] Center NO KNOWN ALLERGIES [facility] Center NO ALLERGY INFORMATION AVAILABLE [facility] PENICILLINS [facility] SULFA (SULFONAMIDE ANTIBIOTICS) [facility] NO KNOWN ALLERGIES [facility] FOOD [facility] CODEINE [facility] ACETAZOLAMIDE [facility] NITROFURANTOIN [facility] CIPROFLOXACIN [facility] CIPROFIBRATE [facility] Center ATORVASTATIN [facility] Center ROSUVASTATIN [facility] Center Results test status date [...] lab abnor mal line notes range code [facility] F CUTOFF unknown [facility] CONC G eneral BELOW: [facility] uses the PROFILE- V MEDTOXSc [...] (e.g., employme nt testing, legal testing) . [facility] F NEGATIVE NEGATIVE Medical [facility] F NEGATIVE NEGATIVE [facility] F NEGATIVE NEGATIVE [facility] F NEGATIVE NEGATIVE Medical [facility] F NEGATIVE NEGATIVE [facility] F NEGATIVE NEGATIVE Medical [facility] F NEGATIVE NEGATIVE Medical [facility] F NEGATIVE NEGATIVE Medical [facility] F NEGATIVE NEGATIVE Medical [facility] F NEGATIVE NEGATIVE Medical [facility] F NEGATIVE NEGATIVE Medical [facility] NEGATIVE NEGATIVE Medical [place] Social History date description facility [id number]
== END 2020-07-26 05:42 | disposition home or self-care (01) ==
LOC: SC 05:41
PROVIDERS: ATTEND Nurse Practitioner Family
DX: G47.10 Hypersomnia, unspecified (principal); R53.83 Other fatigue; G47.8 Other sleep disorders
CPT/HCPCS: 95805

== ENCOUNTER 2020-07-26 08:00 | Outpatient (CLI) | payer OTHER ==
[2020-07-26 13:02] LABS: MUDS CUTOFF CONCENTRATIONS CUTOFF CONC BELOW:
[2020-07-26 13:28] LABS: AMPHETAMINE SCREEN,URINE NEGATIVE (NEGATIVE); BENZODIAZEPINES SCREEN, URINE NEGATIVE (NEGATIVE); COCAINE SCREEN URINE NEGATIVE (NEGATIVE); METHADONE SCREEN, URINE NEGATIVE (NEGATIVE); METHAMPHETAMINES SCREEN, URINE NEGATIVE (NEGATIVE); OPIATE SCREEN, URINE NEGATIVE (NEGATIVE); OXYCODONE SCREEN, URINE NEGATIVE (NEGATIVE); PROPOXYPHENE SCREEN, URINE NEGATIVE (NEGATIVE); TRICYCLIC ANTIDEPRESSANT,URINE NEGATIVE (NEGATIVE)
== END 2020-07-26 23:59 | disposition home or self-care (01) ==
LOC: LAB.R 08:00
PROVIDERS: ATTEND Nurse Practitioner Family
DX: R41.82 Altered mental status, unspecified (principal)
CPT/HCPCS: 80306

== ENCOUNTER 2020-07-31 14:03 | Outpatient (CLI) | payer OTHER ==
--- NOTE | 2020-07-31 15:01 | SLEEP CARE CONSULTATION ---
Information from patient questionnaire entered by Belgica Chun. I have reviewed and concur with the information entered by Belgica Chun. This document represents the service I personally performed and the decisions made by me, Lili Perez MD, [facility]. History of Present Illness Service Date and Time: 07/31/[address] [place] Sleepiness Scale score: 14 (in 2019) Current [place] Sleepiness Scale score: 14 Additional HPI information: HPI: Ms. Rodríguez returns for follow up of the sleep study (in-laboratory polysomnography and multiple sleep latency test) she had on 07/2507/26/20. The polysomnography was again normal. The sleep efficiency and architecture were normal. No sleep disrupting conditions. The multiple sleep latency test (MSLT) showed mild daytime sleepiness with mean sleep latency of 7 minutes on the average. There were no sleep onset REM periods to suggest narcolepsy. The patient was off Adderall for more than 2 weeks. Her urine toxicology was negative. The patient was informed of these findings. I explained to her the polysomnography was normal and that the multiple sleep latency test (MSLT) showed mild excessive daytime sleepiness without evidence of narcolepsy. Sleep Study - Results Type of Sleep Study: Polysomnography (with MSLT) Prior sleep studies: No Allergies and Home Medications Drug allergies reviewed: Yes Home medication list reviewed: Yes Review of Systems Review of systems same as previous: Yes Physical Exam Height: 5 ft 2.5 in Weight: 150 lb Body Mass Index: 27.0 BMI Classification: Overweight Impression and Plan IMPRESSION: 1. Hypersomnia, mild, based on the MSLT finding. The patient may have idiopathic hypersomnia. The patient is already on Adderall for attention deficit disorder, and, therefore, no additional treatment is recommended. The patient was encouraged to get enough sleep every night. PLAN: 1. Follow up with primary care provider to restart Adderall. Another medication that may work is modafinil. 2. Return to the sleep center on as needed basis. Visit Type: In Office Time Spent with Patient (minutes): 20 Provider Statement: I spent 100% of the Face to Face Visit with the patient with greater than 50% spent counseling the patient and coordination of care.
== END 2020-07-31 14:04 | disposition home or self-care (01) ==
LOC: SC 14:03
PROVIDERS: ATTEND Internal Medicine Pulmonary Disease
DX: G47.10 Hypersomnia, unspecified (principal); E66.3 Overweight; Z68.27 Body mass index [BMI] 27.0-27.9, adult
CPT/HCPCS: 99212